=== PATIENT | female | born 1965 | race Caucasian/White ===

== ENCOUNTER 2017-11-23 12:19 | Emergency (ER) | payer BC ==
[2017-11-23] MEDS ORDERED: NS 0.9% 1000 ML* 1,000 ML IV ONE ×2 (12:41→15:00)
[2017-11-23 13:02] LABS: ABS Basophils 0.1 10^3/ul (0-0.2); ABS Eosinophils 0 10^3/ul (0-0.6); ABS Lymphocytes 2.3 10^3/ul (1.0-4.8); ABS Monocytes 0.4 10^3/ul (0-0.8); ABS Neutrophils 3.6 10^3/ul (1.5-7.7); ABS Nucleated RBC 0 10^3/ul; Eosinophil % 0.8 % (0-6); Hematocrit 44 % (35-47); Lymphocyte % 35.3 % (25-47); Mean Corpuscular HGB Conc 34 g/dl (31-36); Mean Corpuscular Hemoglobin 31 pg (27-31); Mean Corpuscular Volume 91 fL (80-97); Mean Platelet Volume 6 um3 (7.4-10.4); Nucleated Red Blood Cells % 0; Platelet Count 231 10^3/ul (150-450); Red Blood Count 4.85 10^6/ul (4.0-5.4); Red Cell Distribution Width 13 % (10.5-15); White Blood Count 6.4 10^3/ul (3.5-10.8)
--- NOTE | 2017-11-23 13:24 | RAD ---
INDICATION: Palpitations COMPARISON: None TECHNIQUE: PA and lateral dual-energy views were obtained. FINDINGS: Bones/Soft Tissues: There are no acute bony findings. There is a scoliotic deformity Cardiomediastinal: The cardiomediastinal silhouette is normal. Lungs: There are no infiltrates. Pleura: There are no pleural effusions. Other: None IMPRESSION: NO ACTIVE DISEASE.
[2017-11-23 13:32] LABS: EGFR Non-African American 82.1 (>60)
[2017-11-23 14:00] LABS: Urine Appearance Clear; Urine Blood 1+ (Negative); Urine Color Colorless; Urine Ketones Negative (Negative); Urine Protein Negative (Negative); Urine Specific Gravity 1.002 (1.010-1.030); Urine Urobilinogen Negative (Negative)
[2017-11-23 17:32] VITALS: BP 117/73
--- NOTE | 2017-11-23 19:22 | CONS ---
CC: Dr. Goldstein * CONSULTATION REPORT: DATE OF CONSULT: 11/23/17 REQUESTING PHYSICIAN IN CONSULT: Dr. Yu. MY ATTENDING PHYSICIAN WHILE IN THE HOSPITAL: Zulema Francis DO (report dictated by Toan Bocanegra NP). PRIMARY CARE PROVIDER: Dr. Goldstein. CHIEF COMPLAINT: 1. Palpitations. 2. Dizziness. HISTORY OF PRESENT ILLNESS: Mrs. Gaines is a 52-year-old female patient who does not carry any medical history, does not take any medications routinely. 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 She felt that she was going to faint, but she never did. She says she felt very dizzy initially. She says this morning she had an apple for breakfast and just some yogurt. She had half a cup of unsweetened ice tea. She says that she has been eating and drinking. There has been no recent illnesses. No fevers, chills, vomiting, or diarrhea. She denied having any chest discomfort, chest pressure. No heaviness. No shortness of breath. She said 3 weeks ago, she had a viral illness she believes and felt weak and subsequently resolved. She sat down at work. One of her co-workers came to her aid to see how she was doing and gave her a couple of aspirin. She took 2 aspirin that made her feel better. She called her primary to set up an appointment for later this afternoon. She was instructed that should the symptoms get worse or not go away, she may want to consider going to the ER. She got up to go take her lunch break and when she was walking to go take her lunch break, she again was feeling still dizzy, lightheaded. She was having palpitations. She was concerned that she was not going to get better and she opted to come into the ER. She called her son, who works at [employer] and he drove her into the hospital. She states that she is feeling a little better now after a liter of fluids. She denies any chest pain. No more palpitations. She denies having any shortness of breath. She denies having any abdominal pain. She denies any recent trips or travel. No recent surgeries. No calf pain or leg pain or swelling or tenderness. Because of the palpitations, we were asked to evaluate in consult. PAST MEDICAL HISTORY: Denied. PAST SURGICAL HISTORY: She has had a hysterectomy, cholecystectomy, knee surgery, breast biopsy, and x3. HOME MEDICATIONS: Denied. ALLERGIES TO MEDICATIONS: CODEINE, LATEX, DEMEROL, PENICILLIN. FAMILY HISTORY: Mother had a history of melanoma. Father had high blood pressure. SOCIAL HISTORY: She does not smoke, rarely drinks alcohol. Surrogate decision maker is her . REVIEW OF SYSTEMS: There is no documented fever. She denied having any significant weight change. She denies having any abdominal pain. There is no nausea. There was no vomiting. No dysuria. There was no frequency. She denies having any seizure. There was no loss of consciousness, no pruritus, and no skin ulcerations. Review of 14 systems completed, all others negative. PHYSICAL EXAM: Vital Signs: Blood pressure 121/64, pulse 74, respirations 15, O2 sat 97%, temperature of 98. General: At this time, Mrs. Gaines is a 52-year -old female patient, she appears to be well-nourished, well-developed. She is sitting in the ED stretcher. She does not appear to be in any acute distress. HEENT: Head: Atraumatic. Eyes: Sclerae anicteric and not pale. Neck: Supple. Throat: Oral mucosa appears to be moist. No oropharyngeal erythema. Heart: Sounds S1, S2. Regular rate and rhythm. No murmurs, rubs, or gallops. Lungs: Clear to auscultation bilaterally. No wheezes, rales, or rhonchi. Abdomen: Soft, flat, nontender. Bowel sounds are present. Extremities: Pulses were 2+ throughout. She had no peripheral edema. She is able to move all 4 extremities with 5/5 strength. Neurologically, the patient is awake, alert, oriented x3. Tongue midline. Tool Setter are equal. No gross focal deficits. Skin: Intact. DIAGNOSTIC STUDIES/LAB DATA: Today, WBC 6.4, RBC of 4.85, hemoglobin 15.0, hematocrit of 44, platelet count 231. D-dimer less than 200. Sodium 137, potassium 4, chloride 103, bicarb 28, BUN is 12, creatinine 0.74, glucose 103, lactic 1, calcium 9.8, mag 2.0, TSH of 2.03, albumin of 4.6. Troponin 0. AST 17, ALT 14, total bili 0.5. Urine showed a low specific gravity, 1+ blood. She did have a chest x-ray obtained today, which revealed no active disease. There was an EKG obtained today, which showed a normal sinus rhythm, rate of 88. No ST elevation or T-wave inversions. Old medical records were reviewed. ASSESSMENT AND PLAN: Mrs. Gaines is a 52-year-old female patient coming into the ED today with complaints of lightheadedness, in addition is also complaining of having palpitations. We were asked to evaluate for consult. My recommendation at this point are: Palpitations, lightheadedness: When I examined the patient, I sat her forward in the ED, she had an episode where her heart rate went from 70 to just about 90 with her sitting just forward, so I think she is a little dehydrated which certainly could be contributing to her symptoms. She did pass orthostatic blood pressures after the first liter. I recommend that a second liter of fluids, the second troponin and also I question if she had may be an supraventricular tachycardia with the palpitations or atrial fibrillation with rapid ventricular response, it is unclear. I am recommending to the ED that we cycle her troponins, I ambulate her on telemetry monitoring here in the ED to make sure she is doing well, not having any arrhythmias and then I also recommended a Holter monitor which I set up for her to have placed at 9:45 tomorrow morning. I instructed the patient to go to admission tomorrow to get this done. I want this results forwarded to Dr. Goldstein. I have a call placed out to him to inform him to be on lookout for this test. I have called to the PCP and to the PCP's nurse. I have instructed the patient should she have any chest pain, shortness of breath, any more dizziness, palpitations or any syncope to come back to the ER immediately for further evaluation, but being that she is low risk, I did feel that she could be safely discharged from the ED , pending the repeat troponin and pending the ambulation test on telemetry. I did discuss this with my attending Dr. Francis, she was in agreement and again if the troponin is negative and if she is able to ambulate down here in the ED on telemetry without any events, she could be safely discharged and she does know that she has a Holter monitor scheduled for her tomorrow at 9:45 to be set up. TOAN BOCANEGRA, CONCRETE POURING SUPERVISOR [id number]/CPS #: [id number] MONIKA
--- NOTE | 2017-11-30 15:12 | ED ---
Beck Rivera Jennifer scribed for Roger Yu MD on 11/23/17 at 1242 . Dizziness - HPI Summary HPI Summary: The patient is a 52 year old female who complains of dizziness that began at 10: 30 this morning. The patient was working at [employer] when she felt dizzy and her heart rate increased, which she felt in her neck. She took an Aspirin which helped alleviate symptoms in five minutes. However, after eating a little food she felt nauseous, dizzy, and like she was going to faint. The patient denies cough, diarrhea, fever, sweats, body aches, dysuria, chest pain, and back pain. She additionally complains of chills, shortness of breath, and a slight headache. - History Of Current Complaint Chief Complaint: EDDizziness Stated Complaint: HEART RACING Time Seen by Provider: 11/23/17 12:33 Hx Obtained From: Patient Onset/Duration: Still Present, Suddenly - Began at 10:30 this morning Timing: Constant Severity Initially: Mild Severity Currently: Mild Character: Dizzy Aggravating Factor(s): Nothing Alleviating Factor(s): Nothing Associated Signs And Symptoms: Positive: Other: - increased heart rate, nausea, dizziness, felt like she was going to faint, chills, shortness of breath, slight headache. NEGATIVE: cough, diarrhea, fever, sweats, body aches, dysuria, chest pain, back pain. - Allergies/Home Medications Allergies/Adverse Reactions: Allergies Allergy/AdvReac Type Severity Reaction Status Date / Time codeine Allergy Tachycardia Verified 11/23/17 13:18 latex Allergy Rash Verified 11/23/17 13:18 meperidine [From Demerol] Allergy Unknown Verified 11/23/17 13:18 Reaction Details Penicillins Allergy Hives Verified 11/23/17 13:18 PMH/Surg Hx/FS Hx/Imm Hx Cardiovascular History: Denies: Other Cardiovascular Problems/Disorders Respiratory History: Denies: Other Respiratory Problems/Disorders GI History: Denies: Other GI Disorders History: Reports: Hx Kidney Stones - 4-5 YRS AGO Musculoskeletal History: Denies: Other Musculoskeletal History Sensory History: Reports: Hx Contacts or Glasses - GLASSES Denies: Hx Hearing Aid Opthamlomology History: Reports: Hx Contacts or Glasses - GLASSES Neurological History: Reports: Hx Migraine - IN THE PAST Denies: Other Neuro Impairments/Disorders - Cancer History 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 RIGHT KNEE 1983. 1995, [place]. HYSTERECTOMY, 2006 Hx Anesthesia Reactions: No Infectious Disease History: No Infectious Disease History: Denies: Traveled Outside the [place] in Last 30 Days - Family History Known Family History: Negative: Blood Disorder - Blood clots - Social History Occupation: Employed Full-time - [employer] Alcohol Use: Rare Alcohol Amount: 2-3 PER MONTH Substance Use Type: Reports: None Smoking Status (MU): Never Smoked Tobacco Have You Smoked in the Last Year: No Review of Systems Positive: Chills. Negative: Fever, Skin Diaphoresis Negative: Erythema Negative: Sore Throat Negative: Chest Pain Positive: Shortness Of Breath. Negative: Cough Positive: Nausea. Negative: Abdominal Pain, Vomiting Negative: dysuria, hematuria Negative: Myalgia, Edema Negative: Rash Neurological: Other - Dizziness Positive: Headache All Other Systems Reviewed And Are Negative: Yes Physical Exam - Summary Physical Exam Summary: Constitutional: Well-developed, Well-nourished, Alert. (-) Distressed Skin: Warm, Dry HENT: Normocephalic; Atraumatic Eyes: Conjunctiva normal Neck: Musculoskeletal ROM normal neck. (-) JVD, (-) Stridor, (-) Tracheal deviation Cardio: Rhythm regular, rate normal, Heart sounds normal; Intact distal pulses; The pedal pulses are 2+ and symmetric. Radial pulses are 2+ and symmetric. (-) Murmur Pulmonary/Chest wall: Effort normal. (-) Respiratory distress, (-) Wheezes, (-) Rales Abd: Soft, (-) Tenderness, (-) Distension, (-) Guarding, (-) Rebound Musculoskeletal: (-) Edema Lymph: (-) Cervical adenopathy Neuro: Alert, Oriented x3 Psych: Mood and affect Normal Triage Information Reviewed: Yes Vital Signs On Initial Exam: Initial Vitals Temp Pulse Resp BP Pulse Ox 98 F 89 18 128/87 98 11/23/17 12:23 11/23/17 12:23 11/23/17 12:23 11/23/17 12:23 11/23/17 12:23 Vital Signs Reviewed: Yes Diagnostics - Vital Signs Vital Signs Temp Pulse Resp BP Pulse Ox 11/23/17 12:34 96 129/86 99 11/23/17 12:33 102 98 11/23/17 12:23 98 F 89 18 128/87 98 - Laboratory Result Diagrams: 11/23/17 12:45 11/23/17 12:45 Lab Statement: Any lab studies that have been ordered have been reviewed, and results considered in the medical decision making process. - Radiology CXR Xray Interpretation: No Acute Changes - NO ACTIVE DISEASE. Dr. Yu has reviewed this report. Radiology Interpretation Completed By: Radiologist - EKG 12:34 Cardiac Rate: NL EKG Rhythm: Sinus Rhythm - 88 BPM EKG Interpretation: No STEMI 15:07 Cardiac Rate: NL EKG Rhythm: Sinus Rhythm - 72 BPM EKG Interpretation: no STEMI Dizzy Course/Dx - Course Assessment/Plan: The patient is a 52 year old female who complains of dizziness that began at 10:30 this morning. In the ED course the patient was given IV fluids. Bloodwork and Urinalysis were obtained. EKG1, EKG2, and CXR were obtained. The patient is diagnosed with palpitations. The patient is instructed to follow up with Dr. Goldstein in two days. The patient is to present to admissions tomorrow at 9:45 am for Holter monitor. - Diagnoses Provider Diagnoses: Palpitations Discharge - Discharge Plan Condition: Stable Disposition: HOME Patient Education Materials: Heart Palpitations (ED) Referrals: Ronald Goldstein MD [Primary Care Provider] - 2 Days Additional Instructions: Follow up with your primary care physician in two days. Present to admissions tomorrow, 11/24/2017, at 9:45 am for Holter monitor. Return to the emergency department for any new or worsening symptoms. The documentation as recorded by the Beck lindsay Jennifer accurately reflects the service I personally performed and the decisions made by , Roger Yu MD.
== END 2017-11-23 17:27 | disposition home or self-care (01) ==
LOC: ED 12:19
DX: R00.2 Palpitations (principal); R42 Dizziness and giddiness; Z88.5 Allergy status to narcotic agent; Z88.0 Allergy status to penicillin
CPT/HCPCS: 36415; 71046; 80053; 81003; 81015; 83605; 83735; 84443; 84484; 85025; 85379; 93005; 96360; 99283